=== PATIENT | female | born 1970 | race Caucasian/White ===

== ENCOUNTER 2020-10-20 20:27 | Emergency (ER) | payer SELFPAY ==
[~2020-10-20] VITALS: Ht 157.5 cm; Wt 86.5 kg
[2020-10-20 20:28] VITALS: BP 160/90
[2020-10-20] MEDS ORDERED: LAMI1TAB8 PO (20:55)
[2020-10-20] MEDS ORDERED: SERO1TAB2 PO (20:55)
[2020-10-20] MEDS ORDERED: SING10TA32 PO (20:55)
== END 2020-10-21 05:47 | disposition left against medical advice (07) ==
LOC: M ED 20:27
DX: Z53.21 Procedure and treatment not carried out due to patient leaving prior to being seen by health care provider (principal)

== ENCOUNTER → 2020-10-21 | Outpatient (CLI) | payer OTHER ==
[~2020-10-21] MED LIST: LAMI1TAB8 PO; SERO1TAB2 PO; SING10TA32 PO
--- NOTE | 2020-10-21 11:40 | REP ---
INDICATION: ANESTHESIA OF SKIN, URINARY INCONTINENCE, ABDOMINAL PAIN. COMPARISON: None. TECHNIQUE: Four views of the thoracic spine were performed. FINDINGS: There is mild levoscoliosis of the thoracolumbar spine. There is multilevel degenerative disc disease of the mid and lower thoracic and lumbar spine with narrowing of the disc spaces and marginal osteophytes. Examination the Rosey vertebral soft tissues demonstrates no acute thoracic pathology. IMPRESSION: Multilevel degenerative disc disease with levoscoliosis. <Electronically signed by Eyad Messer > 10/21/20 [id number]
--- NOTE | 2020-10-21 11:45 | REP ---
INDICATION: ANESTHESIA OF SKIN, URINARY INCONTINENCE, ABDOMINAL PAIN. COMPARISON: None. TECHNIQUE: Five views of the lumbar spine were obtained. FINDINGS: There is minimal dextroscoliosis of the thoracic spine. There is mild degenerative disc disease, L2-3 through L5-S1 with mild narrowing of the disc spaces and small marginal osteophytes. There are no compression fractures. There is no spondylolisthesis. The SI joints are normal. The perivertebral soft tissues are normal. IMPRESSION: Mild multilevel degenerative disc disease with minimal dextroscoliosis. <Electronically signed by Eyad Messer > 10/21/20 [id number]
== END ==
LOC: M WUC 10:03
PROVIDERS: ATTEND Physician Assistant
DX: R20.0 Anesthesia of skin (principal); R32 Unspecified urinary incontinence; R10.9 Unspecified abdominal pain

== ENCOUNTER → 2020-11-08 | Outpatient (CLI) | payer OTHER ==
--- NOTE | 2020-11-08 16:08 | REPVR ---
PROCEDURE INFORMATION: Exam: MR Thoracic Spine Without Contrast Exam date and time: 11/08/2020 3:41 PM Age: 49 years old Clinical indication: Pain in thoracic intervertebral disc disorder; With radiculopathy; Bilateral; Patient HX: Mid back pain, urinary incontinence nki; Additional info: Incontinence of urine TECHNIQUE: Imaging protocol: Multiplanar magnetic resonance images of the thoracic spine without intravenous contrast. COMPARISON: CR SPINE THORACIC 3 VIEW 10/21/2020 10:22 AM FINDINGS: Vertebrae: Unremarkable. Disc spaces: There is loss of T2 signal throughout the intervertebral disc spaces, related to degenerative disc disease. Spinal cord: Normal thoracic cord signal. No cord compression. T1-T2: No significant disc disease. No significant spinal canal stenosis. T2-T3: No significant disc disease. No significant spinal canal stenosis. T3-T4: No significant disc disease. No significant spinal canal stenosis. T4-T5: No significant disc disease. No significant spinal canal stenosis. T5-T6: There is a bulge which extends to and slightly posteriorly displaces the thoracic cord (26/801). No significant spinal canal stenosis. T6-T7: No significant disc disease. No significant spinal canal stenosis. T7-T8: No significant disc disease. No significant spinal canal stenosis. T8-T9: No significant disc disease. No significant spinal canal stenosis. T9-T10: No significant disc disease. No significant spinal canal stenosis. T10-T11: No significant disc disease. No significant spinal canal stenosis. T11-T12: No significant disc disease. No significant spinal canal stenosis. Soft tissues: Unremarkable. IMPRESSION: There are degenerative changes in the thoracic spine most focal at T5-T6 with there is a bulge which extends to and causes slight mass effect on the cord. Electronically signed by: Jose Mata On 11/08/2020 16:08:35 PM
--- NOTE | 2020-11-08 16:16 | REPVR ---
PROCEDURE INFORMATION: Exam: MR Lumbar Spine Without Contrast Exam date and time: 11/08/2020 3:41 PM Age: 49 years old Clinical indication: Other: Mid back pain, urinary incontinence nki; Additional info: Incontinence of urine TECHNIQUE: Imaging protocol: Multiplanar magnetic resonance images of the lumbar spine without intravenous contrast. COMPARISON: CR SPINE LS COMPLETE 10/21/2020 10:22 AM FINDINGS: Vertebrae: There is a transitional lumbosacral vertebra consistent with a partial lumbarlized L5. There is normal alignment. There are few incidental hemangiomata. Disc spaces: There is loss of T2 signal throughout the intervertebral disc spaces, with slight loss of disc space height at L4-L5 and L5-S1 related to degenerative disc disease. 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 Extension of roots through the fatty components cannot be excluded. The conus extends to L1. L1-L2: No significant disc disease. There are mild facet joint degenerative changes. No significant spinal canal stenosis. No neural foraminal stenosis. L2-L3: No significant disc disease. There are mild to moderate facet joint degenerative changes and ligamentum flavum hypertrophy. No significant spinal canal stenosis. No neural foraminal stenosis. L3-L4: No significant disc disease. There are mild facet joint degenerative changes and ligamentum flavum hypertrophy. No significant spinal canal stenosis. No neural foraminal stenosis. L4-L5: There is a small central bulge with a small caudally directed leftward protrusion without mass effect. There are mild facet joint degenerative changes. No significant spinal canal stenosis. No neural foraminal stenosis. L5-S1: No significant disc disease. No significant spinal canal stenosis. No neural foraminal stenosis. Soft tissues: Unremarkable. IMPRESSION: 1. Minimal degenerative changes without lumbar central stenosis. 2. 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 3. Transitional lumbosacral vertebra as described. Electronically signed by: Jose Mata On 11/08/2020 16:16:36 PM
== END ==
LOC: M RAD 14:37
PROVIDERS: ATTEND Physician Assistant
DX: N39.41 Urge incontinence (principal); R22.0 Localized swelling, mass and lump, head; H53.8 Other visual disturbances; Z82.0 Family history of epilepsy and other diseases of the nervous system

== ENCOUNTER 2021-11-11 17:34 | Emergency (ER) | payer OTHER, SELFPAY ==
[~2021-11-11] VITALS: Ht 157.5 cm; Wt 84.2 kg
[2021-11-11 17:35] VITALS: BP 180/90
[2021-11-11] MEDS ORDERED: PRAZ5CAP PO (22:56)
[2021-11-11] MEDS ORDERED: ZYPR15TA PO (22:56)
[2021-11-11] MEDS ORDERED: TEMA22.5 PO (22:56)
[2021-11-12] MEDS ORDERED: LAMO150T3 PO (03:42)
[2021-11-12] MEDS ORDERED: LEVOTAB10 PO (03:42)
[2021-11-12] MEDS ORDERED: OLAN15TA13 PO (03:42)
[2021-11-12] MEDS ORDERED: MONT10TA97 PO (03:42)
[2021-11-12] MEDS ORDERED: VITA100093 PO (03:42)
[2021-11-12] MEDS ORDERED: OMEP40CA5 PO (03:42)
[2021-11-12] MEDS ORDERED: TEMA30CA PO (03:42)
[2021-11-12] MEDS ORDERED: OYST1TAB PO (03:42)
[2021-11-12] MEDS ORDERED: INCR1INH INH (03:42)
[2021-11-12] MEDS ORDERED: BUDE32SU6 (03:42)
[2021-11-12] MEDS ORDERED: PRAZ5CAP PO (03:42)
== END 2021-11-11 19:09 | disposition left against medical advice (07) ==
LOC: M ED 19:01
DX: R45.851 Suicidal ideations (principal); F32.A Depression, unspecified; F43.10 Post-traumatic stress disorder, unspecified; F31.9 Bipolar disorder, unspecified; Z53.20 Procedure and treatment not carried out because of patient's decision for unspecified reasons

== ENCOUNTER 2021-11-11 22:15 | Emergency (ER) | payer OTHER ==
[~2021-11-11] VITALS: Ht 157.5 cm; Wt 86.8 kg
[2021-11-11] MEDS ORDERED: PRAZ5CAP PO (22:56)
[2021-11-11] MEDS ORDERED: TEMA22.5 PO (22:56)
[2021-11-11] MEDS ORDERED: ZYPR15TA PO (22:56)
[2021-11-11 23:45] LABS: AMPHETAMINES LEVEL URINE NEGATIVE (NEGATIVE); BARBITURATES URINE NEGATIVE (NEGATIVE); BENZODIAZEPINES URINE POSITIVE (NEGATIVE); CANNABINOIDS URINE NEGATIVE (NEGATIVE); COCAINE METABOLITE URINE NEGATIVE (NEGATIVE); METHADONE URINE NEGATIVE (NEGATIVE); OPIATES URINE NEGATIVE (NEGATIVE); PHENCYCLIDINE URINE NEGATIVE (NEGATIVE)
[2021-11-11 23:52] LABS: RSV AMPLIFICATION NEGATIVE (NEGATIVE)
[2021-11-11 23:57] LABS: ACETAMINOPHEN LEVEL < 2.0 UG/ML (10.0-30.0); ALBUMIN 4.1 GM/DL (3.2-5.2); ALT/SGPT 71 U/L (12-78); BILIRUBIN,DIRECT < 0.1 MG/DL (0.0-0.2); BILIRUBIN,TOTAL 0.6 MG/DL (0.2-1.0); BLOOD UREA NITROGEN 12 MG/DL (7-18); CALCIUM LEVEL 9.2 MG/DL (8.5-10.1); CARBON DIOXIDE LEVEL 23 MEQ/L (21-32); CHLORIDE LEVEL 109 MEQ/L (98-107); CREATININE FOR GFR 0.92 MG/DL (0.55-1.30); ETHYL ALCOHOL (ETHANOL) < 0.003 % (0.000-0.010); GLOMERULAR FILTRATION RATE > 60.0 (>51); GLUCOSE, FASTING 164 MG/DL (70-100); POTASSIUM SERUM 4.6 MEQ/L (3.5-5.1); SALICYLATE LEVEL 2.8 MG/DL (5.0-30.0); SODIUM LEVEL 139 MEQ/L (136-145); TOTAL PROTEIN 7.4 GM/DL (6.4-8.2)
[2021-11-12 01:15] LABS: HEMATOCRIT 40.8 % (36.0-47.0); HEMOGLOBIN 13.6 g/dl (12.0-15.5); MEAN CORPUSCULAR HEMOGLOBIN 28.6 pg (27.0-33.0); MEAN CORPUSCULAR HGB CONC 33.3 g/dl (32.0-36.5); MEAN CORPUSCULAR VOLUME 85.9 fl (80.0-96.0); PLATELET COUNT, AUTOMATED 223 10^3/uL (150-450); RED BLOOD COUNT 4.75 10^6/uL (4.00-5.40); WHITE BLOOD COUNT 7.3 10^3/uL (4.0-10.0)
[2021-11-12] MEDS ORDERED: LEVOTAB10 PO (03:42)
[2021-11-12] MEDS ORDERED: TEMA30CA PO (03:42)
[2021-11-12] MEDS ORDERED: PRAZ5CAP PO (03:42)
[2021-11-12] MEDS ORDERED: OMEP40CA5 PO (03:42)
[2021-11-12] MEDS ORDERED: BUDE32SU6 (03:42)
[2021-11-12] MEDS ORDERED: VITA100093 PO (03:42)
[2021-11-12] MEDS ORDERED: LAMO150T3 PO (03:42)
[2021-11-12] MEDS ORDERED: INCR1INH INH (03:42)
[2021-11-12] MEDS ORDERED: MONT10TA97 PO (03:42)
[2021-11-12] MEDS ORDERED: OYST1TAB PO (03:42)
[2021-11-12] MEDS ORDERED: OLAN15TA13 PO (03:42)
[2021-11-12] MEDS ORDERED: HOME MED LIST COMPLETE! XX SCH (03:45)
[2021-11-12] MEDS ORDERED: MONTELUKAST 10 MG TAB PO ONE (21:30)
[2021-11-12] MEDS ORDERED: TEMAZEPAM 15 MG CAP PO ONE (21:30)
[2021-11-12] MEDS ORDERED: OMEPRAZOLE 20MG CAP PO ONE (21:30)
[2021-11-12] MEDS ORDERED: PRAZOSIN 1 MG CAP PO ONE (21:30)
[2021-11-12] MEDS ORDERED: lamoTRIgine 100MG TAB PO ONE ×2 (21:30→21:45)
[2021-11-12] MEDS ORDERED: OLANZapine 5 MG TAB PO ONE (21:30)
[2021-11-13] MEDS: CALCIUM CARBONATE 500 MG CHEW U/D PO SCH (09:19)
[2021-11-13] MEDS ORDERED: PILL CUTTER 1 EACH XX PRN (09:25)
[2021-11-13] MEDS: TIOTROPIUM INHALER/CAPSULE (SPIRIVA) INH SCH (09:33)
[2021-11-13] MEDS ORDERED: BUDESONIDE 180MCG INHALER (PULMICORT FLEXHALER) INH SCH (21:00)
[2021-11-13] MEDS ORDERED: PRAZOSIN 1 MG CAP PO SCH (21:00)
[2021-11-13] MEDS ORDERED: OLANZapine 5 MG TAB PO SCH (21:00)
[2021-11-13] MEDS ORDERED: CETIRIZINE (ZyrTEC) 10 MG TAB PO SCH (21:00)
[2021-11-13] MEDS ORDERED: OMEPRAZOLE 20MG CAP PO SCH (21:00)
[2021-11-13] MEDS ORDERED: TEMAZEPAM 15 MG CAP PO SCH (21:00)
[2021-11-13] MEDS ORDERED: lamoTRIgine 100MG TAB PO SCH (21:00)
[2021-11-13] MEDS ORDERED: MONTELUKAST 10 MG TAB PO SCH (21:00)
[2021-11-13 23:22] VITALS: BP 138/75
[2021-11-14] MEDS: TIOTROPIUM INHALER/CAPSULE (SPIRIVA) INH SCH (00:52)
[2021-11-14] MEDS ORDERED: VITAMIN D 1,000 INTERNATIONAL UNITS TABLET PO SCH (09:00)
[2021-11-14] MEDS: CALCIUM CARBONATE 500 MG CHEW U/D PO SCH (09:30)
[2021-11-14 13:57] VITALS: BP 148/75
== END 2021-11-14 14:00 ==
LOC: M ED 22:15
DX: R45.851 Suicidal ideations (principal)

== ENCOUNTER → 2022-04-01 | Outpatient (CLI) | payer OTHER, SELFPAY ==
[~2022-04-01] MED LIST changes: +BUDE32SU6; +INCR1INH INH; +LAMO150T3 PO; +LEVOTAB10 PO; +MONT10TA97 PO; +OLAN15TA13 PO; +OMEP40CA5 PO; +OYST1TAB PO; +PRAZ5CAP PO; +TEMA22.5 PO; +TEMA30CA PO; +VITA100093 PO; +ZYPR15TA PO
[2022-04-01 19:59] LABS: CORTISOL PM 14.1 UG/DL (3.1-16.7)
[2022-04-01 20:02] LABS: ESTRADIOL < 19.0 PG/ML; FOLLICLE STIMULATING HORMONE 83.5 mIU/ML; LUTEINIZING HORMONE 56.9 mIU/ML
[2022-04-01 20:03] LABS: PROGESTERONE 0.21 NG/ML
[2022-04-05 16:08] LABS: ESTRONE SERUM 31 pg/mL (.); SEX HORMONE BINDING GLOBULIN 29.5 nmol/L (17.3-125.0); TESTOSTERONE FREE (DIRECT) 0.9 pg/mL (0.0-4.2)
== END ==
LOC: M WUC 15:03
PROVIDERS: ATTEND Obstetrics & Gynecology
DX: N95.1 Menopausal and female climacteric states (principal); E34.9 Endocrine disorder, unspecified; F52.0 Hypoactive sexual desire disorder

== ENCOUNTER → 2022-10-17 | Outpatient (CLI) | payer OTHER ==
[~2022-10-17] MED LIST changes: +MONT-5 PO; -SING10TA32 PO
== END ==
LOC: M SOG 08:01
PROVIDERS: ATTEND Orthopaedic Surgery
DX: M25.512 Pain in left shoulder (principal); Z53.9 Procedure and treatment not carried out, unspecified reason

== ENCOUNTER 2022-11-28 10:29 | Day surgery (SDC) | payer OTHER ==
[~2022-11-28] VITALS: Ht 157.5 cm; Wt 95.2 kg
[~2022-11-28 10:29] MED LIST changes: +ARIP1TAB43 PO; +HYDR-3363 PO; +LEXA5TAB13 PO; +PRAZ2CAP PO; +PREM0.452 PO
[2022-11-28] MEDS ORDERED: LR 1,000 ML IV SCH ×3 (11:00→14:25)
[2022-11-28] MEDS ORDERED: LIDOCAINE W/EPINEPHRINE 1% 20ML VIAL As Ordered ONE (12:23)
[2022-11-28] MEDS ORDERED: COCAINE 4% 4ML NASAL SOLUTION BTL As Ordered ONE (12:23)
[2022-11-28] MEDS ORDERED: OXYMETAZOLINE 0.05% NASAL SPRAY (AFRIN) As Ordered ONE (12:23)
[2022-11-28] MEDS ORDERED: ACETAMINOPHEN 1000MG 100ML IV BAG As Ordered ONE (13:20)
[2022-11-28] MEDS ORDERED: ROCURONIUM BROMIDE 50MG/5ML VIAL As Ordered ONE (13:20)
[2022-11-28] MEDS ORDERED: propofoL 200 MG/20 ML VIAL As Ordered ONE (13:20)
[2022-11-28] MEDS ORDERED: LIDOCAINE 2% 100MG/5ML SDV (FOR ANES.) As Ordered ONE (13:20)
[2022-11-28] MEDS ORDERED: fentaNYL 250 MCG/5 ML INJECTION As Ordered ONE (13:20)
[2022-11-28] MEDS ORDERED: MIDAZOLAM INJ 2MG/2ML VIAL As Ordered ONE ×2 (13:20→13:43)
[2022-11-28] MEDS ORDERED: ONDANSETRON 4MG 2ML VIAL As Ordered ONE (13:20)
[2022-11-28] MEDS ORDERED: SUGAMMADEX SODIUM 500 MG/5 ML VIAL (BRIDION) As Ordered ONE (13:21)
[2022-11-28] MEDS ORDERED: HYDROMORPHONE HCL 0.5 MG/ 0.5 ML SYRINGE IV PRN (13:55)
[2022-11-28] MEDS ORDERED: fentaNYL 100 MCG/2 ML INJECTION IV PRN (13:55)
[2022-11-28] MEDS ORDERED: ONDANSETRON 4MG 2ML VIAL IV PRN ×2 (13:55→14:25)
[2022-11-28] MEDS ORDERED: LABETALOL 100MG/20ML VIAL As Ordered ONE (14:00)
[2022-11-28] MEDS ORDERED: ANEXSIA, NORCO 7.5MG/325MG TABLET(HYDROCODONE/APAP) PO PRN (14:25)
[2022-11-28] MEDS: oxyCODONE 5MG TAB PO PRN ×2 (14:26→15:16)
[2022-11-28 15:45] VITALS: BP 159/80; TEMP 97.4; O2SAT 98
== END 2022-11-28 16:03 | disposition home or self-care (01) ==
LOC: M SDC 10:29
PROVIDERS: ATTEND Otolaryngology
DX: J34.2 Deviated nasal septum (principal); J34.3 Hypertrophy of nasal turbinates; F43.10 Post-traumatic stress disorder, unspecified; Z79.899 Other long term (current) drug therapy
CPT/HCPCS: 30520; 30802; 93005; C9143; J0131; J1100; J1920; J2250; J2405; J3010

== ENCOUNTER → 2022-12-05 | Outpatient (CLI) | payer OTHER | LOC: M SOG 08:08 | PROVIDERS: ATTEND Orthopaedic Surgery | DX: M25.512 Pain in left shoulder (principal) ==

== ENCOUNTER → 2023-04-21 | Outpatient (CLI) | payer OTHER | LOC: M SOG 07:54 | PROVIDERS: ATTEND Orthopaedic Surgery | DX: M54.50 Low back pain, unspecified (principal); M25.551 Pain in right hip ==

== ENCOUNTER → 2023-06-02 | Outpatient (CLI) | payer BC | LOC: M WUC 14:27 | PROVIDERS: ATTEND Physician Assistant | DX: R05.9 Cough, unspecified (principal) ==

== ENCOUNTER → 2023-07-04 | Outpatient (CLI) | payer MEDICAID | LOC: M RAD 08:33 | PROVIDERS: ATTEND Physician Assistant | DX: R05.9 Cough, unspecified (principal) ==

== ENCOUNTER → 2023-07-05 | Outpatient (CLI) | payer MEDICAID | LOC: M CARPUL 11:13 | PROVIDERS: ATTEND Physician Assistant | DX: R05.9 Cough, unspecified (principal) ==

== ENCOUNTER → 2023-07-21 | Outpatient (CLI) | payer MEDICAID ==
[2023-07-21 15:05] LABS: HEMATOCRIT 37.4 % (36.0-47.0); HEMOGLOBIN 12.6 g/dl (12.0-15.5); MEAN CORPUSCULAR HEMOGLOBIN 28.6 pg (27.0-33.0); MEAN CORPUSCULAR HGB CONC 33.7 g/dl (32.0-36.5); MEAN CORPUSCULAR VOLUME 84.8 fl (80.0-96.0); PLATELET COUNT, AUTOMATED 254 10^3/uL (150-450); RED BLOOD COUNT 4.41 10^6/uL (4.00-5.40); WHITE BLOOD COUNT 11.8 10^3/uL (4.0-10.0)
[2023-07-21 15:32] LABS: BLOOD UREA NITROGEN 14 MG/DL (9-23); CALCIUM LEVEL 9.1 MG/DL (8.5-10.1); CARBON DIOXIDE LEVEL 25 MMOL/L (20-31); CHLORIDE LEVEL 99 MMOL/L (98-107); CREATININE FOR GFR 0.85 MG/DL (0.55-1.30); GLOMERULAR FILTRATION RATE > 60.0 (>51); GLUCOSE, FASTING 277 MG/DL (60-100); POTASSIUM SERUM 3.6 MMOL/L (3.5-5.1); SODIUM LEVEL 138 MMOL/L (136-145)
== END ==
LOC: M WUC 13:09
PROVIDERS: ATTEND Physician Assistant
DX: R05.9 Cough, unspecified (principal)

== ENCOUNTER → 2023-08-22 | Outpatient (CLI) | payer OTHER ==
[2023-08-22 13:25] LABS: TOTAL 25(OH) VITAMIN D 16.8 NG/ML (20.0-100.0)
[2023-08-22 13:32] LABS: IMMUNOGLOBULIN E < 2.5 IU/ML (0-378)
== END ==
LOC: M WUC 10:21
PROVIDERS: ATTEND Internal Medicine Critical Care Medicine
DX: J45.40 Moderate persistent asthma, uncomplicated (principal)

== ENCOUNTER → 2023-10-03 | Outpatient (CLI) | payer OTHER | LOC: M RAD 10:30 | PROVIDERS: ATTEND Internal Medicine Critical Care Medicine | DX: R05.3 Chronic cough (principal) ==